=== PATIENT | male | born 1985 | race African-American/Black ===

== ENCOUNTER 2016-11-14 10:15 | Emergency (ER) | payer SELFPAY ==
[~2016-11-14] VITALS: Ht 170.2 cm; Wt 83.9 kg
[2016-11-14 10:17] VITALS: BP 129/85
--- NOTE | 2016-11-14 10:20 | NUR ---
31/M BIBA FLU LIKE SYMPTOMS x LAST NIGHT. DENIES V/D; SKIN IS PINK/WARM/DRY; AAOX4 WITH EVEN AND STEADY GAIT; LUNGS CLEAR BL; HR EVEN AND REGULAR; PT DENIES ANY FEVER, CP, SOB, OR COUGH AT THIS TIME; PATIENT STATES SORE THROAT PAIN OF 8/10 AT THIS TIME; VSS; PATIENT POSITIONED FOR COMFORT; HOB ELEVATED; BEDRAILS UP X2; BED DOWN. ER MD MADE AWARE OF PT STATUS.
[2016-11-14] MEDS ORDERED: KETOROLAC 60 MG/2 ML VIAL IM ONE (10:40)
[2016-11-14 11:04] VITALS: BP 128/89
--- NOTE | 2016-11-14 11:04 | NUR ---
Patient discharged with v/s stable. Written and verbal after care instructions given and explained. Patient alert, oriented and verbalized understanding of instructions. Ambulatory with steady gait. All questions addressed prior to discharge. ID band removed. Patient advised to follow up with PMD. Rx of MEDROL DOSEPAK given. Patient educated on indication of medication including possible reaction and side effects. Opportunity to ask questions provided and answered.
== END 2016-11-14 11:04 | disposition home or self-care (01) ==
LOC: MED 10:15
DX: J02.8 Acute pharyngitis due to other specified organisms (principal)
CPT/HCPCS: 96372; 99283; J1885

== ENCOUNTER 2017-05-02 22:06 | Emergency (ER) | payer MEDICAID ==
[~2017-05-02] VITALS: Ht 172.7 cm; Wt 77.1 kg
[2017-05-02 22:11] VITALS: BP 99/66
--- NOTE | 2017-05-02 23:01 | NUR ---
PATIENT AMBULATED TO ER BED 12
--- NOTE | 2017-05-02 23:01 | NUR ---
PATIENT TAKEN TO XRAY
--- NOTE | 2017-05-02 23:03 | NUR ---
Pt presents to ED with N/V and abdominal pain 6/10 with movement. Pt brought to the ED via mom. A&Ox4. VSS. Mother at bedside. Pt positioned for comfort. Continue to monitor.
[2017-05-02] MEDS ORDERED: NACL 0.9% 500 ML IV ONE (23:12)
[2017-05-02] MEDS ORDERED: KETOROLAC 30 MG/ML VIAL IVP ONE (23:15)
[2017-05-02] MEDS ORDERED: diphenhydrAMINE 50 MG/ML VIAL IVP ONE (23:15)
[2017-05-02] MEDS ORDERED: PROCHLORPERAZINE 10 MG/2 ML VIAL IVP ONE (23:15)
[2017-05-02 23:48] LABS: BASOPHILS # (AUTO) 0.3 K/uL (0.00-0.22); BASOPHILS % (AUTO) 3.9 % (0.0-2.0); EOSINOPHILS % (AUTO) 0.3 % (0.0-4.0); HEMATOCRIT 39.8 % (36-52); LYMPHOCYTES # (AUTO) 1.6 K/uL (2.0-11.5); LYMPHOCYTES % (AUTO) 19.4 % (20.5-51.1); MEAN CORPUSCULAR HEMOGLOBIN 27 pg (27-31); MEAN CORPUSCULAR HGB CONC 33 g/dL (33-37); MEAN CORPUSCULAR VOLUME 81 fL (80-94); MONOCYTES # (AUTO) 0.6 K/uL (0.8-1.0); MONOCYTES % (AUTO) 7.6 % (1.7-9.3); NEUTROPHILS # (AUTO) 5.8 K/uL (1.8-7.7); NEUTROPHILS % (AUTO) 68.8 % (42.2-75.2); PLATELET COUNT (AUTO) 290 K/uL (140-450); RED BLOOD CELL COUNT(AUTO) 4.89 MIL/uL (4.20-6.10); RED CELL DISTRIBUTION WIDTH 13.4 % (11.6-13.7); WHITE BLOOD COUNT (AUTO) 8.3 K/uL (4.8-10.8)
[2017-05-02 23:57] LABS: ANION GAP 15.3 (8-16); CARBON DIOXIDE 28.1 mmol/L (21-32); CREATININE 1.4 mg/dL (0.7-1.3); POTASSIUM 3.4 mmol/L (3.5-5.1)
[2017-05-03 00:03] LABS: ALBUMIN 3.5 g/dL (3.4-5.0); TOTAL BILIRUBIN 0.5 mg/dL (0.0-1.0)
[2017-05-03 01:32] VITALS: BP 99/66
--- NOTE | 2017-05-06 08:35 | NUR ---
Late entry from 05/02/17 for NS administration: 1L NS at 999ml Start time 234605/02/17 End time 4405/03/17
== END 2017-05-03 01:32 | disposition home or self-care (01) ==
LOC: MED 22:06
DX: K22.6 Gastro-esophageal laceration-hemorrhage syndrome (principal)
CPT/HCPCS: 36415; 71045; 80053; 83690; 85025; 96361; 96374; 96375; 99285; J0780; J1200; J1885; J7030

== ENCOUNTER 2023-07-23 17:43 | Emergency (ER) | payer MEDICAID ==
[~2023-07-23] VITALS: Ht 170.2 cm; Wt 67.6 kg
[~2023-07-23 17:43] MED LIST: ALBU0.0912 INH; LEVO-481 PO; PRED20TA6 PO; PROM118S6 PO
[2023-07-23 18:16] VITALS: BP 131/87; PULSE 70; RESP 0; RESP 18; TEMP 98; O2SAT 100; O2SAT 21
[2023-07-23 18:35] VITALS: O2SAT 100
[2023-07-23 19:13] LABS: BASOPHILS % (AUTO) 0.3 % (0.0-2.0); EOSINOPHILS % (AUTO) 0.3 % (0.0-4.0); HEMATOCRIT 35.9 % (36-52); HEMOGLOBIN 12.2 g/dL (12.0-18.0); LYMPHOCYTES # (AUTO) 1.8 K/uL (2.0-11.5); LYMPHOCYTES % (AUTO) 38.8 % (20.5-51.1); MEAN CORPUSCULAR HEMOGLOBIN 28 pg (27-31); MEAN CORPUSCULAR HGB CONC 34 g/dL (33-37); MEAN CORPUSCULAR VOLUME 83.6 fL (80-94); MONOCYTES # (AUTO) 0.8 K/uL (0.8-1.0); MONOCYTES % (AUTO) 16.6 % (1.7-9.3); PLATELET COUNT (AUTO) 264 K/uL (140-450); RED CELL DISTRIBUTION WIDTH 12.5 % (11.6-13.7); WHITE BLOOD COUNT (AUTO) 4.6 K/uL (4.8-10.8)
[2023-07-23 19:32] LABS: ANION GAP 10.8 (8-16); CALCIUM 8.1 mg/dL (8.5-10.1); CARBON DIOXIDE 30.3 mmol/L (21-32); CREATININE 1.1 mg/dL (0.6-1.3); POTASSIUM 3.1 mmol/L (3.5-5.1)
[2023-07-23 19:46] VITALS: BP 134/90; PULSE 72; RESP 17; TEMP 98.3; O2SAT 100; O2SAT 98
[2023-07-23] MEDS: POTASSIUM CHLORIDE 10 MEQ TABER PO ONE (20:35)
[2023-07-23] MEDS ORDERED: HYDR25CA1 PO (20:54)
== END 2023-07-23 20:57 | disposition home or self-care (01) ==
LOC: MED 17:43
DX: E87.6 Hypokalemia (principal); R42 Dizziness and giddiness; R73.9 Hyperglycemia, unspecified; F41.9 Anxiety disorder, unspecified; Z79.2 Long term (current) use of antibiotics; Z79.899 Other long term (current) drug therapy
CPT/HCPCS: 36415; 71045; 80048; 84484; 85025; 93005; 99285; Q0092